=== PATIENT | female | born 1965 | race Two or more races ===

== ENCOUNTER → 2024-12-21 | Outpatient (CLI) | payer MEDICAID, SELFPAY ==
--- NOTE | 2024-12-21 11:00 | XR_ITS ---
Examination: Abdomen sonogram, complete Date and time of exam: December 21, 2024 1059 hours INDICATIONS: Right upper abdominal pain 3 years. Technique: Multiple real-time grayscale transabdominal sonographic images of the abdomen have been obtained. Findings: Normal gallbladder Normal common bile duct 0.3 cm Pancreatic head 2.3 cm Aorta not enlarged Liver 11.6 cm fatty infiltration Normal hepatopedal portal venous flow Patent IVC Right kidney 11.0 cm cortex 1.6 cm Left kidney 11.0 cm cortex 1.6 cm Mild bilateral renal parenchymal scar formation Mild left hydronephrosis Spleen 7.8 cm IMPRESSION: Mild left hydronephrosis, consider CT scan abdomen pelvis without contrast follow-up
== END | disposition home or self-care (01) ==
PROVIDERS: PCP Physician Assistant; Referring Provider Physician Assistant; Visit Provider Physician Assistant
DX: N13.30 Unspecified hydronephrosis (principal)
CPT/HCPCS: 76700